=== PATIENT | female | born 1955 | race Caucasian/White ===

== ENCOUNTER 2024-02-10 10:49 | Outpatient (AMB) | payer OTHER, SELFPAY ==
[2024-02-10 11:24] VITALS: BP 129/63; PULSE 68; RESP 18; TEMP 35.2; O2SAT 96; BMI 37.0
--- NOTE | 2024-02-10 11:24 | PD.ORTHCLVIS ---
Vital signs 02/10/24 11:24 Height 1.75 m Height Method Stated Weight 113.398 kg Weight Measurement Method Estimated by Patient BMI 37.0 BP 129/63 Blood Pressure Source Automatic Cuff Blood Pressure Location Right Lower Arm Position Sitting Respiration 18 Pulse 68 Pulse Source Monitor Temp 95.3 F L Temp Source Temporal Artery Scan Pulse Oximetry (%) 96 Oxygen Delivery Method Room Air Med/Allergies Allergies & Medications Allergies No Known Allergies Allergy (Verified 02/10/24 11:25) Medication Reconciliation Unobtainable 01/24/23 [History Confirmed 02/10/24] Subjective Visit Visit for: follow up visit Immunization / Flu Flu Vaccine in the Last 12 Months: No Flu Vaccine Exclusion Criteria: No Exclusion Criteria History of Present Illness Chief complaint: FOLLOW UP Patient is a pleasant 67-year-old female with a 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 SHe is doing well in rehab. We disscussed her culture and that it may be a contaminant. SHe is doing well and the incision has apparently healed well. She is able to stand for transfers. She just started outpatient therapy again. She is able to stand and walk about 150 feet Personal History Occupation: RETIRED Red flag PMH: smoker (NON SMOKER ) Pain Pain level (0-10): 0 Pain duration: SORENESS Pain location: other (specify) (KNEES AND RIGHT HIP ) Pain quality: other (specify) (SORENESS) Pain timing: increases with activity and stairs Associated signs & symptoms: stiffness Ambulatory data Ambulatory device: other (specify) (WHEELCHAIR) Treatments Improvement with previous injections: No Improvement with PT: No Improvement with NSAIDS: no Review of Systems Review of Systems: All systems negative unless otherwise noted in HPI. Assessment and Plan Advanced Care Planning Discussion Advance care planning discussed with:: patient Office Procedures GNS Level of Care Nursing/Assessment Patient Status: Established Patient Nursing Assessment/Reassesment: Medication Reconciliation, Update PMH in EMR and Vital Signs Coordination of Care: Complex Care and Chronic Disease 1-5, Education Complex Pt/Fam, Consent,records obtained, informed consent, 1 Ins Authorization, Results/Orders obtained and Staff clarify orders Established Patient Charge Established Patient Point Assignment: 110 Established Patient Point Charge: EP Level 3 (80-115) Past Medical History Past Medical History Have you ever been diagnosed with any of the following: Surgical History Total Hip Replacement: Yes
== END 2024-02-10 11:49 | disposition home or self-care (01) ==
LOC: HODSRG 10:49
PROVIDERS: Supervising Provider Orthopaedic Surgery Adult Reconstructive Orthopaedic Surgery; Visit Provider Orthopaedic Surgery Adult Reconstructive Orthopaedic Surgery
DX: M16.11 Unilateral primary osteoarthritis, right hip (principal)
CPT/HCPCS: 99213; G0463

== ENCOUNTER 2024-06-17 10:32 | Outpatient (AMB) | payer OTHER, SELFPAY ==
--- NOTE | 2024-06-17 11:07 | PD.ORTHCLVIS ---
Vital signs 06/17/24 11:08 Height 1.75 m Height Method Stated Weight 111.13 kg Weight Measurement Method Standing Scale BMI 36.3 BP 130/64 Blood Pressure Source Automatic Cuff Blood Pressure Location Right Upper Arm Position Sitting Respiration 17 Pulse 66 Pulse Source Monitor Temp 98.1 F Temp Source Temporal Artery Scan Pulse Oximetry (%) 99 Oxygen Delivery Method Room Air Med/Allergies Allergies & Medications Allergies No Known Allergies Allergy (Verified 06/17/24 11:09) Medication Reconciliation Unobtainable 01/24/23 [History Confirmed 06/17/24] Exam Exam Patient is in no acute distress and is cooperative with the examination today. Patient has a normal mood and affect. Breathing is nonlabored. In no respiratory distress. Bilateral extremities were evaluated and demonstrates sensation intact to light touch. Palpable pedal pulses are present. No significant edema is present. Right hip is shortened. Patient has significant right hip pain with any motion. She has pain with logroll X-rays demonstrate a Girdlestone with some proximal migration. 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 She is doing well s/p girdlestone. She is very happy with her progress. We will see her back in approximately a year (2) Right hip pain: Status: Acute Advanced Care Planning Discussion Advance care planning discussed with:: patient Office Procedures GNS Level of Care Nursing/Assessment Patient Status: Established Patient Nursing Assessment/Reassesment: Medication Reconciliation, Update PMH in EMR and Vital Signs Coordination of Care: Complex Care and Chronic Disease 1-5, Consent,records obtained, informed consent, Education Simp Pt/Fam, Results/Orders obtained and Staff clarify orders Established Patient Charge Established Patient Point Assignment: 90 Established Patient Point Charge: EP Level 3 (80-115) MA Intake Visit Data Collection New Patient or Established: Established Patient (seen at [facility] within 3 years) Reason for Visit:: 3 MONTH FU- GIRDLESTONE PROCEDURE. Seen by Clinical Staff ONLY (RN/MA): No Staff Registered Nurse Required: No PCP or OBGYN visit in last 3 months: Yes Hx Now: No Do You Feel Safe at Home: Yes Authorities Contacted: N/A Questionairres Past Medical History Past Medical History Have you ever been diagnosed with any of the following: Respiratory Problems Smoking: No Smoking Cessation Counseling: No Smoking Exposure: No Tobacco Use: No Surgical History Total Hip Replacement: Yes Subjective Visit Visit for: follow up visit and hip (RIGHT SIDE ) Immunization / Flu Flu Vaccine in the Last 12 Months: No Flu Vaccine Exclusion Criteria: Refused by Patient History of Present Illness Chief complaint: girdlestone stone Patient is status post a Girdlestone about 1 year ago. She is doing well. She is walkingAnd is very happy with her functional progress Personal History Red flag PMH: none Pain Pain level (0-10): 0 Ambulatory data Ambulatory device: other (specify) (WHEELCHAIR ) Treatments Improvement with NSAIDS: n/a Review of Systems Review of Systems: All systems negative unless otherwise noted in HPI.
[2024-06-17 11:08] VITALS: BP 130/64; PULSE 66; RESP 17; TEMP 36.7; O2SAT 99; BMI 36.3
== END 2024-06-17 11:29 | disposition home or self-care (01) ==
PROVIDERS: Supervising Provider Orthopaedic Surgery Adult Reconstructive Orthopaedic Surgery; Visit Provider Orthopaedic Surgery Adult Reconstructive Orthopaedic Surgery
DX: M13.851 Other specified arthritis, right hip (principal); M25.551 Pain in right hip
CPT/HCPCS: 99213; G0463